=== PATIENT | female | born 1950 | race Caucasian/White ===

== ENCOUNTER 2016-12-07 16:25 | Emergency (ER) | payer OTHER ==
[2016-12-07 14:00] LABS: BASOPHILS 0.2 %; BASOPHILS ABSOLUTE 0.02 10/3/uL (0.0-0.16); EOSINOPHILS 1.5 %; EOSINOPHILS ABSOLUTE 0.16 10/3/uL (0.0-0.53); HEMOGLOBIN 13.1 g/dL (12.0-16.0); IMMATURE GRANULOCYTES 0.5 %; IMMATURE GRANULOCYTES ABSOLUTE 0.05 10/3/uL (0.0-0.11); LYMPHOCYTES 28.7 %; LYMPHOCYTES ABSOLUTE 3.12 10/3/uL (0.67-4.30); MEAN CORPUS HGB CONC 32.8 g/dL (32.0-36.0); MEAN CORPUSCULAR HEMOGLOB 28.2 pg (26.0-34.0); MEAN PLATELET VOLUME 9.2 fL (9.2-13.0); MONOCYTES 4.3 %; MONOCYTES ABSOLUTE 0.47 10/3/uL (0.21-1.20); NEUTROPHILS 64.8 %; NEUTROPHILS ABSOLUTE 7.04 10/3/uL (2.02-8.40); PLATELET COUNT 292 10/3/uL (150-400); RBC DISTRIBUTION WIDTH 14.5 % (12.0-16.0); RED CELL COUNT 4.65 10/6/uL (4.0-5.6); WHITE BLOOD CELLS 10.9 10/3/uL (4.5-10.5)
[2016-12-07 14:03] LABS: ER CBC TAT 0 Hrs 04 MinsNP; MANUAL DIFF NO %
[2016-12-07 14:08] LABS: INTERNATIONAL NORMAL RATI 0.9 UNITS (-); PARTIAL THROMBO TIME 27.3 SEC (22.5-37.2); PROTIME (NOT ORD) 12.1 SEC (12.0-14.5)
[2016-12-07 14:17] LABS: A/G RATIO 0.9 (0.7-1.9); ALBUMIN 3.6 G/DL (3.5-5.0); ALKALINE PHOSPHATASE 69 U/L (45-117); CALCIUM, SERUM 9.5 MG/DL (8.5-10.4); CHLORIDE, SERUM 102 MMOL/L (96-112); CO2 (CARBON DIOXIDE) 30 MMOL/L (24-34); CREATININE 0.99 MG/DL (0.55-1.02); GFR AFRICAN AMERICAN 68 ML/MIN (>=60); GFR NON AFRICAN AMERICAN 59 ML/MIN (>=60); GLOBULIN 3.8 G/DL (2.5-4.1); GLUCOSE, SERUM 203 MG/DL (60-99); POTASSIUM, SERUM 4.2 MMOL/L (3.5-5.3); SGOT(AST) 14 U/L (5-40); SGPT(ALT) 18 U/L (5-65); SODIUM, SERUM 139 MMOL/L (135-148); TOTAL BILIRUBIN 0.3 MG/DL (0-1.2); TOTAL PROTEIN 7.4 G/DL (6.0-8.5); TROPONIN I <0.02 NG/ML (<0.05)
[2016-12-07 14:18] LABS: BUN (BLOOD UREA NITROGEN) 11 MG/DL (6-23)
[~2016-12-07 16:25] MED LIST: AMARYL4; ASA5GR PO; ASAB PO; ASAEC PO; B121000P IM; BENTYL10 PO; BRILINTA90 MG PO; CHELATED IRON PO; COREG6 PO; CYANO1000T PO; DIABET2.5 PO; DIABETA5 PO; DIOVAN HC1 PO; DORYX100 MG PO; GLUCOPHAGE1000 MG PO; GLUCPH PO; GLYBURIDE; HYZAAR1 TAB PO; IRON PO; IRON325 MG PO; LIPITOR20 PO; LORTAB 5 PO; MAGNESIUM; MAGNESIUM PO; MAGOX4 PO; MAGTRATE500 MG PO; MONOKET PO; NORCO1 TA1 PO; NORV5 PO; NOVOPEN SC; PR25 PO; PRAVACHOL40 MG PO; PRILO PO; PRILOSEC40 MG PO; PROTONIX PO; PROTONIX20 MG PO; SYSTANE ULTR OPH; T PO; TRAVATAN; TRAVATAN OPH; VITAMIN B-121000 MC1 SL; VITAMIN B12 SHOT; VITAMIN D1000 UNI1 PO; VITAMIN D31000 UNIT PO; XALAT OPH; ZESTORETIC PO; [UNRECOGNIZED DRUG - CODE] OR; [UNRECOGNIZED DRUG - OTHER] TOP
== END 2016-12-07 18:07 | disposition home or self-care (01) ==
LOC: ER 16:25
PROVIDERS: Emergency Medicine
DX: G45.9 Transient cerebral ischemic attack, unspecified (principal); E11.9 Type 2 diabetes mellitus without complications; M19.90 Unspecified osteoarthritis, unspecified site; Z87.891 Personal history of nicotine dependence; Z88.5 Allergy status to narcotic agent; Z88.2 Allergy status to sulfonamides; Z88.1 Allergy status to other antibiotic agents; Z79.82 Long term (current) use of aspirin; Z79.84 Long term (current) use of oral hypoglycemic drugs; Z91.041 Radiographic dye allergy status; Z79.899 Other long term (current) drug therapy
CPT/HCPCS: 70450; 71020; 72040; 80053; 84484; 85025; 85610; 85730; 93005; 99285